=== PATIENT | female | born 1995 | race Caucasian/White ===

== ENCOUNTER 2022-03-14 09:33 | Inpatient (IN) | payer OTHER ==
[~2022-03-14] VITALS: Ht 152.4 cm; Wt 51.3 kg
[~2022-03-14 09:33] MED LIST: PANADOL; PRENATALES
[2022-03-14] MEDS ORDERED: PRENATAL TABLE1 EAC3 PO (10:35)
[2022-03-15] MEDS ORDERED: PANADOL EXTRA500 MG (10:07)
[2022-03-15] MEDS ORDERED: HYDROCORTISONE30 G4 (10:07)
== END 2022-03-17 12:50 | disposition home or self-care (01) | DRG 807 ==
LOC: OB/GYN 09:33 → LDR 09:33 → OB/GYN 03-15 12:20
PROVIDERS: ADMIT Obstetrics & Gynecology Maternal & Fetal Medicine; ATTEND Obstetrics & Gynecology Maternal & Fetal Medicine
PROC: 4A1HXCZ Monitoring of Products of Conception, Cardiac Rate, External Approach (ICD-10-PCS; 2022-03-14)
PROC: 10E0XZZ Delivery of Products of Conception, External Approach (ICD-10-PCS; principal; 2022-03-15)
PROC: 0UQG7ZZ Repair Vagina, Via Natural or Artificial Opening (ICD-10-PCS; 2022-03-15)
DX: O71.4 Obstetric high vaginal laceration alone (principal); Z37.0 Single live birth; Z3A.37 37 weeks gestation of pregnancy; Z20.822 Contact with and (suspected) exposure to COVID-19